=== PATIENT | female | born 1965 | race Caucasian/White ===

== ENCOUNTER 2017-09-07 06:58 | Inpatient (IN) | payer BC ==
[2017-09-07] VITALS (9 sets, daily range): BP systolic 149–214; BP diastolic 52–92; PULSE 74–83; RESP 16–18; TEMP 87–99.1; O2SAT 95–100
[~2017-09-07] VITALS: Ht 157.5 cm; Wt 103.9 kg
[2017-09-07] MEDS ORDERED: blood pressure med (07:14)
[2017-09-07] MEDS ORDERED: MORPHINE SULFATE 4 MG/ML INJ IV PUSH ONE (07:30)
[2017-09-07] MEDS ORDERED: SODIUM CHLORIDE 0.9% FLUSH 10 ML FLUSH IV FLUSH PRN ×2 (07:30→10:30)
[2017-09-07] MEDS ORDERED: ONDANSETRON HCL 4 MG/2 ML VIAL IVP ONE (07:30)
--- NOTE | 2017-09-07 08:11 | PD ---
HPI Chief Complaint: Abdominal Pain Time Seen by Provider: 07:18 Travel History International Travel<30 days: No Contact w/Intl Traveler<30days: No Traveled to known affect area: No History of Present Illness HPI The patient's 51 years old and arrives here from the [facility]. She complains of right upper quadrant pain radiating to the back associated with dry heaving. She's had no fever. Workup done at [facility] was significant for hepatic steatosis and possible hemangioma with gallbladder stone. Lab work is unremarkable. No similar prior episodes have occurred. [facility] Past Medical History Diminished Hearing: No Hypertension: Yes Influenza Vaccination: No ?: Not Past Surgical History Surgical History: No Previous Surgery Social History Alcohol Use: No Tobacco Use: No Substance Use: No Allergies-Medications (Allergen,Severity, Reaction): Coded Allergies: No Known Allergies (Unverified , 09/07/17) Reported Meds & Prescriptions Reported Meds & Active Scripts Active Reported [blood pressure med] Review of Systems Except as stated in HPI: all other systems reviewed are Neg General / Constitutional: No: Fever Gastrointestinal: Positive: Nausea, Abdominal Pain Physical Exam Narrative GENERAL: 51-year-old female pleasant well-nourished well-developed mild distress Vital Signs Date Time Temp Pulse Resp B/P (MAP) Pulse Ox O2 Delivery O2 Flow Rate FiO2 09/07/17 07:50 74 18 179/84 (115) 99 Room Air 09/07/17 07:49 18 100 Room Air 09/07/17 07:01 97.7 83 16 214/92 (132) 100 SKIN: Warm and dry. HEAD: Atraumatic. Normocephalic. EYES: Pupils equal and round. No scleral icterus. No injection or drainage. ENT: No nasal bleeding or discharge. Mucous membranes pink and moist. NECK: Trachea midline. No JVD. CARDIOVASCULAR: Regular rate and rhythm. RESPIRATORY: No accessory muscle use. Clear to auscultation. Breath sounds equal bilaterally. GASTROINTESTINAL: Tenderness to palpation of the right upper quadrant. Soft. MUSCULOSKELETAL: Extremities without clubbing, cyanosis, or edema. No obvious deformities. NEUROLOGICAL: Awake and alert. No obvious cranial nerve deficits. Motor grossly within normal limits. Five out of 5 muscle strength in the arms and legs. Normal speech. PSYCHIATRIC: Appropriate mood and affect; insight and judgment normal. Data Data Last Documented VS Vital Signs Date Time Temp Pulse Resp B/P (MAP) Pulse Ox O2 Delivery O2 Flow Rate FiO2 09/07/17 09:34 18 09/07/17 08:46 74 171/91 (117) 100 Room Air 09/07/17 07:01 97.7 Vital signs reviewed Orders Orders Us Abdomen Gallbladder (09/07/17 ) Iv Access Insert/Monitor (09/07/17 07:30) Oximetry (09/07/17 07:30) Morphine Inj (Morphine Inj) (09/07/17 07:30) Ondansetron Inj (Zofran Inj) (09/07/17 07:30) Sodium Chloride 0.9% Flush (Ns Flush) (09/07/17 07:30) Morphine Inj (Morphine Inj) (09/07/17 09:00) Piperacil-Tazo 4.5 Gm Premix (Zosyn 4.5 (09/07/17 09:30) Admit Order (Ed Use Only) (09/07/17 ) Vital Signs (Adult) Q4H (09/07/17 09:36) Diet Npo (09/07/17 Breakfast) Activity Oob With Assistance (09/07/17 09:36) MDM Medical Decision Making Medical Screen Exam Complete: Yes Emergency Medical Condition: Yes Medical Record Reviewed: Yes Differential Diagnosis Gastritis, pancreatitis, appendicitis, acute cholecystitis, ascending cholangitis, AAA, perforated viscous, mesenteric ischemia, hepatitis, cystitis, hydronephrosis/hydroureter/nephroureter calculus, mesenteric adenitis, biliary colic Narrative Course WBC 7.2 Hgb 12.6 Plt 268 Tn < 0.02 Lipase 100 HCF 2 CMP essentially unremarkable Last Impressions Gall Bladder Ultrasound 09/07/17 0000 Signed Impressions: Service Date/Time: Thursday, September 07, 2017 07:57 - CONCLUSION: Multiple gallstones with thickened gallbladder wall thickening the common duct. Cholecystitis would be consideration. Casey Acuna MD FACR [facility] d/w Dr Duarte for general surgery service Diagnosis Primary Impression: Acute cholecystitis Admitting Information Admitting Physician Requests: Admit Philip De Leon MD Sep 07, 2017 08:11
[2017-09-07] MEDS ORDERED: MORPHINE SULFATE 2 MG/ML INJ IV PUSH ONE (09:00)
--- NOTE | 2017-09-07 09:10 | RADRPT ---
EXAM DATE/TIME: 09/07/2017 07:57 [place] COMPARISON: No previous studies available for comparison. INDICATIONS : Right upper quadrant pain. MEDICAL HISTORY : Hypertension. SURGICAL HISTORY : None. ENCOUNTER: Initial ACUITY: 2 days PAIN SCORE: 6/10 LOCATION: Right upper quadrant MEASUREMENTS: LIVER: 16.8 cm length COMMON DUCT: 8 mm RIGHT KIDNEY: 10.3 x 5.2 x 5.2 cm FINDINGS: LIVER: Moderate fatty infiltration COMMON DUCT: Prominent common duct at 8 mm GALLBLADDER: Thickened gallbladder wall and multiple stones. PANCREAS: The visualized portions are within normal limits. RIGHT KIDNEY: No evidence of hydronephrosis, stone, or mass. CONCLUSION: Multiple gallstones with thickened gallbladder wall thickening the common duct. Cholecystitis would be consideration. Casey Acuna MD FACR on September 07, 2017 at 9:06 Board Certified Radiologist. This report was verified electronically.
[2017-09-07] MEDS ORDERED: PIPERACIL-TAZO 4.5 GM PREMIX 100 ML IV ONE (09:30)
[2017-09-07] MEDS ORDERED: NALOXONE HCL 0.4 MG/ML AMP IV PUSH PRN (10:30)
[2017-09-07] MEDS ORDERED: ACETAMINOPHEN 325 MG TAB PO PRN (10:30)
[2017-09-07] MEDS: SODIUM CHLOR 0.9% 1000 ML INJ 1,000 ML IV SCH ×2 (11:00→19:43)
--- NOTE | 2017-09-07 12:53 | HHI.HP ---
[facility] Service [facility] Primary Care Physician Non-Staff Admission Diagnosis Acute Cholecystitis Diagnoses: Chief Complaint: Abdominal pain Travel History International Travel<30 Days: No Contact w/Intl Traveler <30 Da: No Traveled to Known Affected Are: No History of Present Illness Patient is a 51-year-old female with a history of hypertension comes in with 1 day of acute and severe right upper quadrant pain radiating into the back. Her pain is improved with IV morphine. Patient also had some nausea and vomiting. She actually went to the emergency room in [place] but was unable to get an ultrasound per her report and drove herself to the [facility] and [place] emergency room. Patient at this time has an ultrasound which is worrisome for acute cholecystitis. She has multiple gallstones and thickened gallbladder wall. On exam she has positive Christina sign. Patient admitted to the hospital due to these problems Review of Systems Constitutional: DENIES: Diaphoretic episodes, Fatigue, Fever, Weight gain, Weight loss, Chills, Dizziness, Change in appetite, Night Sweats Endocrine: DENIES: Abnorml menstrual pattern, Heat/cold intolerance, Polydipsia , Polyuria, Polyphagia Eyes: DENIES: Blurred vision, Diplopia, Eye inflammation, Eye pain, Vision loss , Photosensitivity, Double Vision Ears, nose, mouth, throat: DENIES: Tinnitus, Hearing loss, Vertigo, Nasal discharge, Oral lesions, Throat pain, Hoarseness, Ear Pain, Running Nose, Epistaxis, Sinus Pain, Toothache, Odynophagia Respiratory: DENIES: Apneas, Cough, Snoring, Wheezing, Hemoptysis, Sputum production, Shortness of breath Cardiovascular: DENIES: Chest pain, Palpitations, Syncope, Dyspnea on Exertion , PND, Lower Extremity Edema, Orthopnea, Claudication Gastrointestinal: COMPLAINS OF: Abdominal pain, Nausea, Vomiting, DENIES: Black stools, Bloody stools, Constipation, Diarrhea, Difficulty Swallowing, Anorexia Genitourinary: DENIES: Abnormal vaginal bleeding, Dysmenorrhea, Dyspareunia, Sexual dysfunction, Urinary frequency, Urinary incontinence, Urgency, Hematuria , Dysuria, Nocturia, Vaginal discharge Musculoskeletal: DENIES: Joint pain, Muscle aches, Stiffness, Joint Swelling, Back pain, Neck pain Integumentary: DENIES: Abnormal pigmentation, Pruritus, Rash, Nail changes, Breast masses, Breast skin changes, Nipple discharge Hematologic/lymphatic: DENIES: Bruising, Lymphadenopathy Immunologic/allergic: DENIES: Eczema, Urticaria Neurologic: DENIES: Abnormal gait, Headache, Localized weakness, Paresthesias, Seizures, Speech Problems, Tremor, Poor Balance Psychiatric: DENIES: Anxiety, Confusion, Mood changes, Depression, Hallucinations, Agitation, Suicidal Ideation, Homicidal Ideation, Delusions Except as stated in HPI: all other systems reviewed are Neg Past Family Social History Past Medical History Hypertension Past Surgical History Left hand surgery Reported Medications Reviewed in the EMR Allergies: Coded Allergies: No Known Allergies (Unverified , 09/07/17) Active Ordered Medications Reviewed in the EMR Family History Mother from a stroke in her 70s Father had Parkinson's Social History No tobacco or alcohol dependency, lives with her family Works for [employer] Physical Exam Vital Signs Vital Signs Date Time Temp Pulse Resp B/P (MAP) Pulse Ox O2 Delivery O2 Flow Rate FiO2 09/07/17 10:39 09/07/17 09:34 18 09/07/17 08:46 74 18 171/91 (117) 100 Room Air 09/07/17 08:15 18 09/07/17 07:50 74 18 179/84 (115) 99 Room Air 09/07/17 07:49 18 100 Room Air 09/07/17 07:01 97.7 83 16 214/92 (132) 100 Physical Exam GENERAL: This is a well-nourished, well-developed patient, in no apparent distress. SKIN: No rashes, ecchymoses or lesions. Cool and dry. HEAD: Atraumatic. Normocephalic. No temporal or scalp tenderness. EYES: Pupils equal round and reactive. Extraocular motions intact. No scleral icterus. No injection or drainage. ENT: Nose without bleeding, purulent drainage or septal hematoma. Throat without erythema, tonsillar hypertrophy or exudate. Uvula midline. Airway patent. NECK: Trachea midline. No JVD or lymphadenopathy. Supple, nontender, no meningeal signs. CARDIOVASCULAR: Regular rate and rhythm without murmurs, gallops, or rubs. RESPIRATORY: Clear to auscultation. Breath sounds equal bilaterally. No wheezes , rales, or rhonchi. GASTROINTESTINAL: Abdomen soft, right upper quadrant tender to palpation, nondistended. No hepato-splenomegaly, or palpable masses. No guarding. MUSCULOSKELETAL: Extremities without clubbing, cyanosis, or edema. No joint tenderness, effusion, or edema noted. No calf tenderness. Negative Homans sign bilaterally. NEUROLOGICAL: Awake and alert. Cranial nerves II through XII intact. Motor and sensory grossly within normal limits. Five out of 5 muscle strength in all muscle groups. Normal speech. Imaging Last Impressions Gall Bladder Ultrasound 09/07/17 0000 Signed Impressions: Service Date/Time: Thursday, September 07, 2017 07:57 - CONCLUSION: Multiple gallstones with thickened gallbladder wall thickening the common duct. Cholecystitis would be consideration. Casey Acuna MD FACR [place] VTE Risk Assessment Caprini VTE Risk Assessment: Mod/High Risk (score >= 2) Caprini Risk Assessment Model Point Value = 1 Point Value = 2 Point Value = 3 Point Value = 5 Age 41-60 Minor surgery BMI > 25 kg/m2 Swollen legs Varicose veins or History of unexplained or recurrent spontaneous Oral contraceptives or hormone replacement Sepsis (< 1 month) Serious lung disease, including pneumonia (< 1 month) Abnormal pulmonary function Acute myocardial infarction Congestive heart failure (< 1 month) History of inflammatory bowel disease Medical patient at bed rest Age 61-74 Arthroscopic surgery Major open surgery (> 45 min) Laparoscopic surgery (> 45 min) Malignancy Confined to bed (> 72 hours) Immobilizing plaster cast Central venous access Age >= 75 History of VTE Family history of VTE Factor V Leiden Prothrombin [id number] Lupus anticoagulant Anticardiolipin antibodies Elevated serum homocysteine Heparin-induced thrombocytopenia Other congenital or acquired thrombophilia Stroke (< 1 month) Elective arthroplasty Hip, pelvis, or leg fracture Acute spinal cord injury (< 1 month) Prophylaxis Regimen Total Risk Factor Score Risk Level Prophylaxis Regimen 0-1 Low Early ambulation 2 Moderate Order ONE of the following: *Sequential Compression Device (SCD) *Heparin 5000 units SQ BID 3-4 Higher Order ONE of the following medications: *Heparin 5000 units SQ TID *Enoxaparin/Lovenox 40 mg SQ daily (WT < 150 kg, CrCl > 30 mL/min) *Enoxaparin/Lovenox 30 mg SQ daily (WT < 150 kg, CrCl > 10-29 mL/min) *Enoxaparin/Lovenox 30 mg SQ BID (WT < 150 kg, CrCl > 30 mL/min) AND/OR *Sequential Compression Device (SCD) 5 or more Highest Order ONE of the following medications: *Heparin 5000 units SQ TID (Preferred with Epidurals) *Enoxaparin/Lovenox 40 mg SQ daily (WT < 150 kg, CrCl > 30 mL/min) *Enoxaparin/Lovenox 30 mg SQ daily (WT < 150 kg, CrCl > 10-29 mL/min) *Enoxaparin/Lovenox 30 mg SQ BID (WT < 150 kg, CrCl > 30 mL/min) AND *Sequential Compression Device (SCD) Assessment and Plan Problem List: (1) HTN (hypertension) ICD Code: I10 - Essential (primary) hypertension Plan: Vasotec as needed Patient's home medication to be clarified once her spouse has brought it in (2) Acute cholecystitis ICD Code: K81.0 - Acute cholecystitis Status: Acute Plan: Continue with IV narcotics for pain, morphine Anti-emetics General surgery consult N.p.o. for now with IV hydration (3) Adnexal mass ICD Code: N94.9 - Unspecified condition associated with female genital organs and menstrual cycle Plan: Discussed with patient We will continue with outpatient follow-up for this post menopausal patient Code Status full code Discussed Condition With patient er md Physician Certification 2 Midnight Certification Type: Admission for Inpatient Services Order for Inpatient Services The services are ordered in accordance with Medicare regulations or non- Medicare payer requirements, as applicable. In the case of services not specified as inpatient-only, they are appropriately provided as inpatient services in accordance with the 2-midnight benchmark. Estimated LOS (days): 3 3 days is the estimated time the patient will need to remain in the hospital, assuming treatment plan goals are met and no additional complications. Post-Hospital Plan: Home Tawny Riley MD Sep 07, 2017 12:53
[2017-09-07] MEDS: MORPHINE SULFATE 2 MG/ML INJ IV PUSH PRN ×3 (12:57→16:46)
[2017-09-07] MEDS ORDERED: ENALAPRILAT 1.25 MG/ML VIAL IV PRN (13:00)
[2017-09-07] MEDS ORDERED: ONDANSETRON HCL 4 MG/2 ML VIAL IV PUSH PRN (13:00)
[2017-09-07] MEDS ORDERED: CHLORHEXIDINE GLUCONATE 2 % 1 PACK (2 CLOTHS)(extra cloths) TOPICAL PRN (13:00)
[2017-09-07] MEDS: FAMOTIDINE 20 MG TAB PO SCH ×2 (14:08→20:03)
[2017-09-07] MEDS: ACETAMINOPHEN/HYDROcodone 325 MG/7.5 MG TAB PO PRN ×2 (14:12→20:41)
--- NOTE | 2017-09-07 15:56 | PD.CONS ---
HPI Service General Surgery Consult Requested By Dr. Riley Reason for Consult Cholecystitis Primary Care Physician Non-Staff History of Present Illness 51 yo F awoke with severe epigastric pain radiating to the back assoc with N/V at 2am. The pain persists. WBC nml and LFTs nml. U/s shows gallstones and wall thickening. No previous abdominal surgeries. Review of Systems Constitutional: DENIES: Fever, Chills Eyes: DENIES: Eye inflammation, Eye pain Ears, nose, mouth, throat: DENIES: Oral lesions, Throat pain Respiratory: DENIES: Cough, Shortness of breath Gastrointestinal: COMPLAINS OF: Abdominal pain, Nausea, Vomiting Musculoskeletal: DENIES: Back pain, Neck pain Neurologic: DENIES: Paresthesias, Seizures Past Family Social History Past Medical History HTN Past Surgical History Hand surgery Reported Medications Reported Meds & Active Scripts Active Reported [blood pressure med] Allergies: Coded Allergies: No Known Allergies (Unverified , 09/08/17) Active Ordered Medications Current Medications Medications (Trade) Dose Ordered Sig/David Route Start Time Stop Time Status Last Admin (NS Flush) 2 ml UNSCH PRN IV FLUSH 09/07/17 07:30 Sodium Chloride 1,000 ml @ 100 mls/hr Q10H IV 09/07/17 10:16 09/07/17 11:00 (NS Flush) 2 ml UNSCH PRN IV FLUSH 09/07/17 10:30 (NS Flush) 2 ml BID IV FLUSH 09/07/17 21:00 (Tylenol) 650 mg Q4H PRN PO 09/07/17 10:30 (Narcan Inj) 0.4 mg UNSCH PRN IV PUSH 09/07/17 10:30 (Zofran Inj) 4 mg Q6HR PRN IV PUSH 09/07/17 13:00 09/07/17 12:57 (Morphine Inj) 2 mg Q4H PRN IV PUSH 09/07/17 13:00 09/07/17 12:57 (Vasotec Inj) 1.25 mg Q8H PRN IV 09/07/17 13:00 Miscellaneous Information Patient in critical care unit? Ass... [id number] .XX 09/07/17 13:00 09/07/17 13:00 (Chlorhexidine 2% Cloth) 3 pack DAILY@04 TOPICAL 09/08/17 04:00 09/12/17 04:01 (Chlorhexidine 2% Cloth) 3 pack UNSCH PRN TOPICAL 09/07/17 13:00 09/12/17 12:57 ([place] 7.5-325 Mg) 1 tab Q6H PRN PO 09/07/17 14:15 09/07/17 14:12 (Pepcid) 20 mg BID PO 09/07/17 14:15 09/07/17 14:08 Family History Noncontributory Social History No ETOH or tobacco use. Physical Exam Vital Signs Vital Signs Date Time Temp Pulse Resp B/P (MAP) Pulse Ox O2 Delivery O2 Flow Rate FiO2 09/07/17 10:39 09/07/17 09:34 18 09/07/17 08:46 74 18 171/91 (117) 100 Room Air 09/07/17 08:15 18 09/07/17 07:50 74 18 179/84 (115) 99 Room Air 09/07/17 07:49 18 100 Room Air 09/07/17 07:01 97.7 83 16 214/92 (132) 100 Physical Exam GENERAL: Awake and alert. No acute distress. Cooperative. Obese. HEAD: Normocephalic. Atraumatic. EYES: Pupils equal round and reactive to light bilaterally. No scleral icterus. ENT: Moist oral mucosa. NECK: Trachea midline. CHEST: Lungs clear to auscultation bilaterally with no wheezing or rhonchi. No respiratory distress. CARDIOVASCULAR: Regular rate and rhythm. ABDOMEN: severe epigastric and RUQ ttp. Obese. EXTREMITIES: No cyanosis or edema. SKIN: Warm, dry, nonjaundiced. Laboratory Reviewed Imaging Us reviewed. See [place] visit. Assessment and Plan Assessment and Plan 51 yo F with acute cholecystitis. Plan for lap cholecystectomy tomorrow morning if operating room can give me a slot. Details and risks including need for open procedure and common bile duct injury discussed with the patient. She desires to proceed. Bryan Duarte MD Sep 07, 2017 15:56
[2017-09-07] MEDS: SODIUM CHLORIDE 0.9% FLUSH 10 ML FLUSH IV FLUSH SCH (19:43)
[2017-09-08] VITALS: BP 127/70; PULSE 78; RESP 16; TEMP 98.3; O2SAT 93
[2017-09-08 04:00] VITALS: BP 145/80; PULSE 75; RESP 16; TEMP 97.5; O2SAT 94
[2017-09-08] MEDS: CHLORHEXIDINE GLUCONATE 2 % 1 PACK (2 CLOTHS)(taper/protocol) TOPICAL SCH (04:00)
[2017-09-08 05:22] LABS: AUTOMATED NEUTROPHIL # 7.3 TH/MM3 (1.8-7.7); BASOPHIL % 0.3 % (0.0-2.0); EOSINOPHIL # 0.1 TH/MM3 (0-0.4); EOSINOPHIL % 1.2 % (0.0-4.0); HEMATOCRIT 36.7 % (35.0-46.0); HEMOGLOBIN 11.9 GM/DL (11.6-15.3); LYMPH % 18.3 % (9.0-44.0); LYMPHOCYTE # 1.8 TH/MM3 (1.0-4.8); MEAN CELL VOLUME 75.2 FL (80.0-100.0); MEAN CORPUSCULAR HEMOGLOBIN 24.5 PG (27.0-34.0); MEAN CORPUSCULAR HGB CONC 32.5 % (32.0-36.0); MEAN PLATELET VOLUME 8.1 FL (7.0-11.0); MONO % 6.7 % (0.0-8.0); MONOCYTE # 0.7 TH/MM3 (0-0.9); NEUT % 73.5 % (16.0-70.0); PLATELET COUNT 248 TH/MM3 (150-450); RED BLOOD COUNT 4.88 MIL/MM3 (4.00-5.30); RED CELL DISTRIBUTION WIDTH 13.9 % (11.6-17.2); WHITE BLOOD COUNT 9.9 TH/MM3 (4.0-11.0)
[2017-09-08 05:37] LABS: BICARBONATE 27.1 MEQ/L (21.0-32.0); CALCIUM 8.2 MG/DL (8.5-10.1)
[2017-09-08 05:41] LABS: CREATININE 0.64 MG/DL (0.50-1.00)
[2017-09-08] MEDS: SODIUM CHLOR 0.9% 1000 ML INJ 1,000 ML IV SCH ×2 (06:20→16:16)
[2017-09-08] MEDS: ACETAMINOPHEN/HYDROcodone 325 MG/7.5 MG TAB PO PRN (06:23)
[2017-09-08] MEDS: FAMOTIDINE 20 MG TAB PO SCH ×2 (08:15→22:07)
[2017-09-08] MEDS: SODIUM CHLORIDE 0.9% FLUSH 10 ML FLUSH IV FLUSH SCH ×2 (08:16→21:00)
[2017-09-08 08:19] VITALS: BP 126/65; PULSE 85
[2017-09-08] MEDS ORDERED: ceFAZolin 2 GM PREMIX 50 ML ONE (10:35)
[2017-09-08] MEDS ORDERED: metroNIDAZOLE 500 MG INJ 100 ML IV ONE (10:37)
[2017-09-08] MEDS ORDERED: BUPIVACAINE/EPINEPHRINE 0.25% 50 ML VIAL ONE (10:41)
[2017-09-08] MEDS ORDERED: POVIDONE IODINE 5% (ANTISEPSIS KIT) 4 APPLICATIONS EACH NARE PRN (10:45)
[2017-09-08] MEDS ORDERED: METOPROLOL TARTRATE 25 MG TAB PO PRN (10:45)
[2017-09-08] MEDS ORDERED: SODIUM CHLORID 0.9% 500 ML IV PRN (10:45)
[2017-09-08] MEDS ORDERED: LACTATED RINGER'S 1000 ML IV PRN (10:45)
[2017-09-08] MEDS ORDERED: CHLORHEXIDINE GLUCONATE 2 % 1 PACK (2 CLOTHS) TOPICAL PRN (10:45)
[2017-09-08] MEDS ORDERED: ceFAZolin 2 GM PREMIX 50 ML IV SCH (11:00)
[2017-09-08] MEDS ORDERED: METRONIDAZOLE 500 MG/100 ML ISONTONIC SOLN IV SCH (11:00)
[2017-09-08] MEDS ORDERED: OXYC1TAB63 PO (12:23)
--- NOTE | 2017-09-08 12:28 | PD.OP ---
cc: Bryan Duarte MD Operative Report Date of Surgery: Sep 08, 2017 Preoperative Diagnosis: (1) Acute cholecystitis (2) BMI 40.0-44.9, adult Postoperative Diagnosis: (1) Acute cholecystitis (2) BMI 40.0-44.9, adult Procedure: Laparoscopic cholecystectomy Anesthesia: DYAN Surgeon: Bryan Duarte Facilities Manager(s): [place] Operation and Findings: Complications: None apparent EBL:20cc Operative findings: Distended inflamed edematous gallbladder full of stones. Clear bile consistent with hydrops. Gallbladder required decompression with aspiration needle. No stones were spilled. Procedure in detail: The patient was taken to the operating room and placed in the supine position. General endotracheal anesthesia was induced. The abdomen was prepped and draped in usual sterile fashion and a surgical timeout was performed to verify correct patient procedure and site. Appropriate perioperative antibiotics were administered. Local anesthetic was injected in the skin and subcutaneous tissue superior to the umbilicus and a 5 mm incision performed. The abdomen was entered using the Optiview 5 mm trocar with direct laparoscopic visualization. The abdomen was then insufflated to 15 mmHg with CO2 gas which the patient tolerated well. Next a 12 mm port was placed in the epigastrium and two 5 mm ports in the right upper quadrant and right lateral abdomen. The patient was placed in reverse Trendelenburg position and turned slightly to the left. Attention was turned to the right upper quadrant and the dome of the gallbladder was grasped and retracted cephalad. The gallbladder was tense and distended and required decompression with the aspiration needle. Approximately 40 cc of clear bile was aspirated. The infundibulum was retracted laterally to expose Calot's triangle. The area was very inflamed and required careful dissection with the suction business objects, [place], and the hook electrocautery. Blunt dissection and judicious use of electrocautery was used to expose the cystic duct and the cystic artery directly entering the gallbladder. Two clips were placed proximally on each of these structures and one distally and they were transected. The gallbladder was then removed from the liver bed using electrocautery. Hemostasis was achieved. The gallbladder was then removed from the abdomen using an Endo Catch bag after extending the fascial and skin incisions due to the large size of the gallbladder and the amount of stones present. The right upper quadrant was copiously irrigated.. The clips were in place on the cystic duct and cystic artery stumps with no bleeding or bile leakage. At this point, the abdomen was allowed to desufflate and trochars were removed. The fascia at the 12 mm port site was closed with 0 Vicryl suture. Skin was closed with subcuticular 4-0 Monocryl as well as Dermabond. The patient tolerated the procedure well and was extubated and taken to PACU in stable condition. All sponge and instrument counts were correct. Bryan Duarte MD Sep 08, 2017 12:28
[2017-09-08] MEDS: MORPHINE SULFATE 2 MG/ML INJ IV PUSH PRN (13:45)
[2017-09-08] MEDS ORDERED: MIDAZOLAM HCL 2 MG/2 ML VIAL ONE (13:53)
[2017-09-08] MEDS: oxyCODONE/ACETAMINOPHEN 5 MG/325 MG TAB PO PRN ×2 (14:24→19:22)
[2017-09-08 15:00] VITALS: BP 123/69; PULSE 93; TEMP 98.7
[2017-09-08] MEDS ORDERED: DO NOT ADM ANY ANTICOAGULANT DRUGS PRN (15:00)
--- NOTE | 2017-09-08 15:19 | HHI.PR ---
Subjective Remarks Patient seen in room in follow-up for acute cholecystitis. Doing well post cholecystectomy Objective Vitals Vital Signs Date Time Temp Pulse Resp B/P (MAP) Pulse Ox O2 Delivery O2 Flow Rate FiO2 09/08/17 13:55 99.1 83 16 143/72 (95) 94 Nasal Cannula 3 09/08/17 13:35 137/72 (93) 91 09/08/17 13:20 145/76 (99) 92 09/08/17 13:05 84 16 147/64 (91) 92 09/08/17 12:48 99.5 100 16 136/69 (91) 93 Nasal Cannula 3 09/08/17 09:50 97.4 82 16 134/78 (96) 95 09/08/17 08:19 85 126/65 (85) 09/08/17 04:00 97.5 75 16 145/80 (101) 94 09/08/17 00:00 98.3 78 16 127/70 (89) 93 09/07/17 20:00 99.1 80 16 165/84 (111) 95 09/07/17 17:13 78 I/O 09/07/17 09/07/17 09/07/17 09/08/17 09/08/17 09/08/17 07:00 15:00 23:00 07:00 15:00 23:00 Intake Total 100 ml 1494 ml 900 ml Output Total 20 ml Balance 100 ml 1494 ml 880 ml Intake Oral 350 ml IV Total 100 ml 1144 ml 900 ml Output Estimated Blood Loss 20 ml # Voids 3 Result Diagram: 09/08/17 0420 09/08/17 0420 Objective Remarks GENERAL: This is a well-nourished, well-developed patient, in no apparent distress. CARDIOVASCULAR: Regular rate and rhythm without murmurs, gallops, or rubs. RESPIRATORY: Clear to auscultation. Breath sounds equal bilaterally. No wheezes , rales, or rhonchi. GASTROINTESTINAL: Tender postprocedure Normal active bowel sounds MUSCULOSKELETAL: Extremities without clubbing, cyanosis, or edema. NEURO: Alert & Oriented x4 to person, place, time, situation. Moves all ext x4 A/P Problem List: (1) HTN (hypertension) ICD Code: I10 - Essential (primary) hypertension Plan: Vasotec as needed Patient's home medication to be clarified once her spouse has brought it in (2) Acute cholecystitis ICD Code: K81.0 - Acute cholecystitis Status: Acute Plan: Continue with IV narcotics for pain, morphine Anti-emetics General surgery consult Advance diet as tolerated per surgery (3) Adnexal mass ICD Code: N94.9 - Unspecified condition associated with female genital organs and menstrual cycle Plan: Discussed with patient We will continue with outpatient follow-up for this post menopausal patient Discharge Planning Likely discharge in a.m. if stable Tawny Riley MD Sep 08, 2017 15:19
[2017-09-08 16:00] VITALS: O2SAT 97
[2017-09-08 20:00] VITALS: BP 128/64; PULSE 88; RESP 16; TEMP 98.6; O2SAT 94
[2017-09-09] VITALS: BP 112/64; PULSE 76; RESP 16; TEMP 99.9; O2SAT 98
[2017-09-09] MEDS: SODIUM CHLOR 0.9% 1000 ML INJ 1,000 ML IV SCH (02:16)
[2017-09-09] MEDS: oxyCODONE/ACETAMINOPHEN 5 MG/325 MG TAB PO PRN ×3 (03:17→14:29)
[2017-09-09 04:00] VITALS: BP 127/68; PULSE 80; RESP 16; TEMP 99.1; O2SAT 96
[2017-09-09] MEDS: CHLORHEXIDINE GLUCONATE 2 % 1 PACK (2 CLOTHS)(taper/protocol) TOPICAL SCH (04:00)
[2017-09-09 08:00] VITALS: BP 129/72; PULSE 80; RESP 16; TEMP 99.2; O2SAT 99
[2017-09-09 08:08] VITALS: O2SAT 98
[2017-09-09] MEDS: FAMOTIDINE 20 MG TAB PO SCH (11:08)
[2017-09-09] MEDS: SODIUM CHLORIDE 0.9% FLUSH 10 ML FLUSH IV FLUSH SCH (11:09)
--- NOTE | 2017-09-09 11:56 | HHI.DCPOC ---
Discharge Care Plan Diagnosis: (1) Acute cholecystitis (2) HTN (hypertension) (3) Adnexal mass Goals to Promote Your Health * To prevent worsening of your condition and complications * To maintain your health at the optimal level Directions to Meet Your Goals Take your medications as prescribed Follow your dietary instruction Follow activity as directed Keep your appointments as scheduled Take your immunizations and boosters as scheduled If your symptoms worsen call your PCP, if no PCP go to Urgent Care Center or Emergency Room Smoking is Dangerous to Your Health. Avoid second hand smoke Call the 24-hour hour crisis hotline for domestic abuse at Melanie Nash Sep 09, 2017 11:56
--- NOTE | 2017-09-09 11:56 | HHI.PR ---
Subjective Remarks Follow-up for acute cholecystitis. Patient seen and examined, sitting up in bed in no apparent distress. States she slept well. Pain is well controlled. Eating well with no abdominal pain, nausea or vomiting. Denies any diarrhea. Here to go home today. Awaiting final recommendations from general surgery. Objective Vitals Vital Signs Date Time Temp Pulse Resp B/P (MAP) Pulse Ox O2 Delivery O2 Flow Rate FiO2 09/09/17 08:08 98 21 09/09/17 08:00 99.2 80 16 129/72 (91) 99 09/09/17 04:25 18 09/09/17 04:00 99.1 80 16 127/68 (87) 96 09/09/17 00:00 99.9 76 16 112/64 (80) 98 09/08/17 20:12 Nasal Cannula 2.00 09/08/17 20:00 98.6 88 16 128/64 (85) 94 09/08/17 16:00 97 Nasal Cannula 2.00 09/08/17 15:00 98.7 93 123/69 (87) 09/08/17 13:55 99.1 83 16 143/72 (95) 94 Nasal Cannula 3 09/08/17 13:35 137/72 (93) 91 09/08/17 13:20 145/76 (99) 92 09/08/17 13:05 84 16 147/64 (91) 92 09/08/17 12:48 99.5 100 16 136/69 (91) 93 Nasal Cannula 3 I/O 09/08/17 09/08/17 09/08/17 09/09/17 09/09/17 09/09/17 07:00 15:00 23:00 07:00 15:00 23:00 Intake Total 1494 ml 900 ml Output Total 20 ml 5 ml Balance 1494 ml 880 ml -5 ml Intake Oral 350 ml IV Total 1144 ml 900 ml Output Urine Total 5 ml Estimated Blood Loss 20 ml # Voids 3 6 Result Diagram: 09/08/17 0420 09/08/17 0420 Imaging Last Impressions Gall Bladder Ultrasound 09/07/17 0000 Signed Impressions: Service Date/Time: Thursday, September 07, 2017 07:57 - CONCLUSION: Multiple gallstones with thickened gallbladder wall thickening the common duct. Cholecystitis would be consideration. Casey Acuna MD FACR Objective Remarks GENERAL: Well-developed, well-nourished patient in NAD. SKIN: Warm and dry. No rash. HEAD: Normocephalic. Atraumatic. EYES: Pupils equal and round. No scleral icterus. No injection or drainage. ENT: No nasal bleeding or discharge. Mucous membranes pink and moist. NECK: Supple. Trachea midline. CARDIOVASCULAR: Regular rate and rhythm. S1, S2 noted. No murmur appreciated. RESPIRATORY: No accessory muscle use. Clear to auscultation. Breath sounds equal bilaterally. GASTROINTESTINAL: Abdomen soft, nondistended. Normoactive bowel sounds x4. Mild tenderness to right upper quadrant post procedure. MUSCULOSKELETAL: No obvious deformities. Extremities without clubbing, cyanosis , or edema. NEUROLOGICAL: Awake and alert. No obvious cranial nerve deficits. Motor grossly within normal limits. 5/5 muscle strength in bilateral upper and lower extremities. Normal speech. A/P Problem List: (1) HTN (hypertension) ICD Code: I10 - Essential (primary) hypertension Plan: Blood pressure stable. Continue home medications. (2) Acute cholecystitis ICD Code: K81.0 - Acute cholecystitis Status: Acute Plan: Patient has been receiving oxycodone as needed for pain scale as well as morphine IV for breakthrough pain. Zofran as needed. General surgery performed acute cholecystectomy, patient postop day #1. Tolerating diet. Denies any nausea or vomiting. Possible discharge today per general surgery recommendations. (3) Adnexal mass ICD Code: N94.9 - Unspecified condition associated with female genital organs and menstrual cycle Plan: Discussed with patient We will continue with outpatient follow-up for this post menopausal patient Discharge Planning Possible discharge today. Melanie Nash Sep 09, 2017 11:56
[2017-09-09 12:00] VITALS: BP 143/76; PULSE 86; RESP 18; TEMP 100.2; O2SAT 96
--- NOTE | 2017-09-09 14:02 | HHI.PR ---
Subjective Subjective Notes Tolerating diet and pain controlled. Wishes to go home. Objective Vitals/I&O Vital Signs Date Time Temp Pulse Resp B/P (MAP) Pulse Ox O2 Delivery O2 Flow Rate FiO2 09/09/17 12:00 100.2 86 18 143/76 (98) 96 09/09/17 08:08 21 09/08/17 20:12 Nasal Cannula 2.00 Radiology Us reviewed. See [place] visit. Narrative Exam NAD Abd: soft, inc c/d/i A/P Assessment and Plan 51 yo F POD 1 s/p po maria. Doing well post op. D/c home today. F/u in two weeks. GeraldBryan bryan MD Sep 09, 2017 14:02
--- NOTE | 2017-09-09 19:16 | EKG ---
Date Performed: 09/08/2017 Time Performed: 09:30:15 PTAGE: 51 years EKG: Sinus rhythm LOW QRS VOLTAGE IN PRECORDIAL LEADS MODERATE VOLTAGE CRITERIA FOR LVH, CONSIDER NORMAL VARIANT BORDE AVINASHINE ECG NO PREVIOUS TRACING DOCTOR: Atif Curtis Interpretating Date/Time 09/09/2017 19:14:27
== END 2017-09-09 14:47 | disposition home or self-care (01) | DRG 418 ==
LOC: PHED 06:58 → PHEDA 09:37 → PHICU 10:45 → PH3A 09-09 07:52
PROVIDERS: ADMIT Hospitalist; ATTEND Hospitalist
PROC: 0FT44ZZ Resection of Gallbladder, Percutaneous Endoscopic Approach (ICD-10-PCS; principal; 2017-09-08 10:55)
DX: K80.00 Calculus of gallbladder with acute cholecystitis without obstruction (principal); Z68.41 Body mass index [BMI] 40.0-44.9, adult; K76.0 Fatty (change of) liver, not elsewhere classified; K82.1 Hydrops of gallbladder; I10 Essential (primary) hypertension; K21.9 Gastro-esophageal reflux disease without esophagitis; E66.9 Obesity, unspecified; N94.9 Unspecified condition associated with female genital organs and menstrual cycle
CPT/HCPCS: 76705; 80048; 85025; 88304; 93005; 94150; 96374; 96375; 96376; J0690; J2250; J2270; J2405; J2543; J3010; J7030; J7120